=== PATIENT | female | born 1990 | race African-American/Black ===

== ENCOUNTER 2016-11-03 16:20 | Inpatient (IN) ==
[2016-11-03 17:31] LABS: Basophils % 0.2 % (0.0-0.8); Eosinophils % 0.5 % (0.00-10.9); Hematocrit 35.6 VOL% (35.7-47.0); Hemoglobin 10.9 GM/DL (12.0-16.0); Immature Granulocytes % 0.9 %; Immature Granulocytes Absolute 0.05 #; Lymphocytes # 1.6 10*3/uL (1.4-4.0); Mean Corpuscular HGB Conc 30.6 GM/DL (32-36); Mean Corpuscular Hemoglobin 24 PG (27-34); Mean Corpuscular Volume 78.2 FL (87-102); Mean Platelet Volume 11.5 FL (9.6-12.0); Monocytes # 0.4 10*3/uL (0.11-0.8); Monocytes % 7.1 % (1.7-12.7); Neutrophils # 3.5 10*3/uL (1.4-7.4); Neutrophils % 62.3 % (38.7-73.9); Platelet Count 184 T/CUMM (130-400); Red Blood Count 4.55 MC/CUMM (3.8-5.5); White Blood Count 5.7 T/CUMM (4-12)
[2016-11-03 17:36] LABS: Apearance,Urine CLOUDY (Clear); Bacteria,Urine Occasional /HPF (Few); Bilirubin,Urine Negative (Negative); Blood, Urine Negative (Negative); Glucose,Urine (UA) Negative (Negative); Ketones,Urine 20 mg/dL (Negative); Mucus,Urine Occasional /LPF (Occasional); Nitrite,Urine Negative (Negative); Protein,Urine Negative; RBC,Urine 1 /HPF (0-4); Squamous Epithelial Cell,Urine Occasional /HPF (0-10); WBC,Urine 4 /HPF (0-6)
[2016-11-03 17:37] LABS: Urine Color Yellow (Yellow)
[2016-11-03 18:01] LABS: Albumin 2.6 G/DL (3.4-5.0); Bilirubin,Total 0.5 MG/DL (0.2-1.0); Calcium 9.2 MG/DL (8.5-10.1); Osmolality,Calculated 268.8 MOS/KG (273-304); Total Protein 6.8 G/DL (6.4-8.3); Uric Acid 4.4 MG/DL (2.6-6.0)
[2016-11-03 18:43] LABS: INR 0.9; PT Patient Result 9.7 SECS; Partial Thromboplastin Time 29.1 SECS (0-40)
[2016-11-04] MEDS: LACTATED RINGERS 1,000 ML IV SCH ×3 (03:13→20:00)
[2016-11-04 05:55] LABS: Basophils % 0.2 % (0.0-0.8); Eosinophils % 0.5 % (0.00-10.9); Hematocrit 36.1 VOL% (35.7-47.0); Hemoglobin 10.8 GM/DL (12.0-16.0); Immature Granulocytes % 0.7 %; Immature Granulocytes Absolute 0.03 #; Lymphocytes # 1.5 10*3/uL (1.4-4.0); Lymphocytes % 37.2 % (21.3-54.2); Mean Corpuscular HGB Conc 29.9 GM/DL (32-36); Mean Corpuscular Hemoglobin 24 PG (27-34); Mean Corpuscular Volume 78.6 FL (87-102); Mean Platelet Volume 11.2 FL (9.6-12.0); Monocytes # 0.4 10*3/uL (0.11-0.8); Monocytes % 8.8 % (1.7-12.7); Neutrophils # 2.2 10*3/uL (1.4-7.4); Neutrophils % 52.6 % (38.7-73.9); Platelet Count 190 T/CUMM (130-400); Red Blood Count 4.59 MC/CUMM (3.8-5.5); Red Cell Distribution Width 15.1 % (9.3-17.3); White Blood Count 4.1 T/CUMM (4-12)
[2016-11-04 06:24] LABS: Albumin 2.4 G/DL (3.4-5.0); Bilirubin,Total 0.4 MG/DL (0.2-1.0); Calcium 8.5 MG/DL (8.5-10.1); Osmolality,Calculated 269.8 MOS/KG (273-304); Potassium 4.5 MMOL/L (3.5-5.1); Total Protein 6.5 G/DL (6.4-8.3)
[2016-11-04] MEDS ORDERED: CITRIC ACID/SODIUM CITRATE 30 ML UDCUP PO ONE (08:00)
[2016-11-04] MEDS ORDERED: FAMOTIDINE 20 MG/2 ML VIAL IV ONE (08:00)
[2016-11-04] MEDS ORDERED: OXYTOCIN/LR 20 UNIT/1,000 ML BAG IV ONE ×2 (08:23→10:57)
[2016-11-04] MEDS ORDERED: PHENYLEPHRINE 1 MG/10 ML SYRINGE IV ONE (09:35)
[2016-11-04] MEDS ORDERED: ONDANSETRON 4 MG/2 ML VIAL ONE (09:35)
[2016-11-04] MEDS ORDERED: PROPOFOL 200 MG/20 ML VIAL IV ONE (09:35)
[2016-11-04] MEDS ORDERED: ACETAMINOPHEN 325 MG TABLET PO PRN (10:57)
[2016-11-04] MEDS ORDERED: RHO(D) IMMUNE GLOBULIN 300 MCG SYRINGE IM ONE (10:57)
[2016-11-04] MEDS ORDERED: ONDANSETRON 4 MG/2 ML VIAL IV PRN (10:57)
[2016-11-04] MEDS ORDERED: LACTATED RINGERS 1,000 ML IV SCH (11:00)
--- NOTE | 2016-11-04 11:01 | Operative Note ---
Date of procedure: 11/04/16 Procedure Preformed: Following informed consent patient taken to the operating room where spinal anesthesia was administered without difficulty. She is prepped and draped in usual fashion placed in dorsal supine position with a leftward tilt. A Pfannenstiel skin incision made with scalpel and carried through to the underlying layer fascia with Bovie. The fascia with incision was excised midlines to lateral with Toussaint scissors. The inferior and superior aspects of the fascial incision were grasped with R[place] clamps, elevated and the rectus muscles dissected off bluntly. The rectus muscles were then midline and the peritoneum identified and entered with Metzenbaum scissors. The cyst extends purely inferiorly with good visualization of the bladder. Bladder blade was then reinserted and the uterus incised in transverse fashion with scalpel. It was head was atraumatically. The nose mouth bulb suctioned. Cord clamped cut and the handed off to waiting nurses. Cord blood was sent. The placenta was then removed manually and the uterus cleared all clots and debris. The uterine incision with #1 Vicryl in a running locked fashion. A second layer same suture was used to obtain hemostasis. The gutters and cleared of all clots and debris and once again hemostasis will be satisfactory. Therefore all instruments from the abdomen. The fascia was repaired with [0] Vicryl in a running fashion. Skin pleasant and soft rodger. At the end of the procedure all sponge lap needle counts correct 2. Baby and mother in stable condition. Surgeon / Physician: Guera Calderón Post-op diagnosis: same Findings: Liveborn male infant weight 8 lbs. 3 oz. Apgars 4 and 8 Specimens: none sent Estimated blood loss: other (500 mL) Condition: stable Anesthesia: spinal Disposition: floor
--- NOTE | 2016-11-04 11:02 | OB/GYN History & Physical ---
History of Present Illness History of present illness: Ms. Du is a 26 year old female Admitted at 38-6/7 weeks secondary to gestational hypertension. Patient with history of previous for which she is to undergo repeat section. Patient complained of headache 3 days Home Medications Medication Instructions Recorded Confirmed Type Multivitamin () [ 1 tablet PO DAILY 11/04/16 11/04/16 History Vitamin] HYDROcodone/ACETAMIN 5-325 [[place] 2 tablet PO Q6H PRN #60 tablet 11/06/16 Rx 5-325] Allergies Allergy/AdvReac Type Severity Reaction Status Date / Time Shellfish Allergy RASH Verified 10/06/16 07:45 12 point system: reviewed and no additional remarkable complaints except as stated Medical,Surgical,& Family Hx - Medical History Cardio: History of: Hypertension (PIH) Neurology: No history of: Seizures Gastrointestinal: History of: GI Problems (GALL STONES) Reproductive: History of: Complication (PIH this ) - Surgical History Abdominal Surgeries: Surgical HX of: Abdominal Surgery, Cholecystectomy Reproductive Surgeries: Surgical HX of;: Section (x3), Gynecologic Surgery Patient denies;: Hysterectomy, Tubal Ligation - Family History Family History: Denies;: Family Anesthesia Reaction, Family Cancer, Family Diabetes, Family Heart Disease, Family Hematology, Family Hypertension, Family Psychiatric Problems, Family Stroke, Additional Family History - Social History Smoking Status: Never smoker Frequency of Alcohol Use: None 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 - Constitutional Vitals: Vital Signs Temp Pulse Resp BP 11/04/16 04:00 97.9 F 82 18 137/65 11/04/16 00:00 97.8 F 94 H 18 134/70 11/03/16 21:00 117 H 18 156/51 11/03/16 20:30 96 H 18 157/70 11/03/16 20:00 91 H 18 138/69 11/03/16 19:30 99 H 18 145/50 11/03/16 19:00 98.0 F 107 H 18 145/48 11/03/16 18:30 98 H 18 135/62 11/03/16 18:00 104 H 18 139/70 11/03/16 17:30 69 18 141/87 11/03/16 17:23 100 H 18 145/80 11/03/16 16:53 111 H 18 128/65 General appearance: mild distress - Head Head exam: Present: normocephalic - Respiratory Respiratory exam: Present: clear to auscultation bilaterally - Cardiovascular Cardiovascular exam: Present: regular rate and rhythm - GI/Abdominal GI/Abdominal exam: Present: normal bowel sounds, soft - Extremities Exam Extremities exam: Present: edema (+1 edema of the lower extremities bilaterally) - Back Exam Back exam: Present: normal inspection - Neurological Exam Neurological exam: Present: alert, oriented X3 - Psychiatric Psychiatric exam: Present: normal affect, normal mood - Skin Skin exam: Present: normal color, warm Assessment and Plan (1) 38 weeks gestation of Status: Acute Current Visit: Yes (2) 38 to 41 weeks gestation of Status: Acute Current Visit: Yes (3) Gestational hypertension Status: Acute Current Visit: Yes Results - Labs CBC & BMP: 11/05/16 04:21 11/04/16 05:42 Quality Measures - VTE Contraindication to Pharmacological VTE Prophylaxis: High Risk of Bleeding
--- NOTE | 2016-11-04 11:10 | Anesthesia Post-Op ---
Anesthesia Post OP - Post Ansesthetic Evaluation Patient seen in post op: Yes Resp: within normal limits CV: within normal limits Mental: within normal limits Temp: within normal limits [id number]: within normal limits Nausea and Vomiting: within normal limits Pain: within normal limits
[2016-11-04] MEDS ORDERED: fentaNYL 100 MCG/2 ML VIAL ONE (11:15)
[2016-11-04] MEDS ORDERED: KETAMINE 500 MG/10 ML VIAL ONE (11:16)
[2016-11-04] MEDS ORDERED: MORPHINE 10 MG/10 ML VIAL ONE (11:16)
[2016-11-04] MEDS ORDERED: HYDROmorphone 2 MG/1 ML VIAL ONE (11:45)
[2016-11-04] MEDS: HYDROmorphone 2 MG/1 ML VIAL IV PRN ×2 (18:10→22:20)
[2016-11-04 18:24] LABS: Basophils % 0.1 % (0.0-0.8); Hemoglobin 10.1 GM/DL (12.0-16.0); Immature Granulocytes % 0.4 %; Immature Granulocytes Absolute 0.04 #; Lymphocytes # 1.3 10*3/uL (1.4-4.0); Lymphocytes % 14.1 % (21.3-54.2); Mean Corpuscular HGB Conc 30.6 GM/DL (32-36); Mean Corpuscular Hemoglobin 24 PG (27-34); Mean Corpuscular Volume 78.4 FL (87-102); Mean Platelet Volume 11.5 FL (9.6-12.0); Monocytes # 0.4 10*3/uL (0.11-0.8); Neutrophils # 7.8 10*3/uL (1.4-7.4); Neutrophils % 81.4 % (38.7-73.9); Platelet Count 170 T/CUMM (130-400); Red Blood Count 4.21 MC/CUMM (3.8-5.5); Red Cell Distribution Width 14.8 % (9.3-17.3); White Blood Count 9.5 T/CUMM (4-12)
[2016-11-04] MEDS: DOCUSATE SODIUM 100 MG CAPSULE PO SCH (22:35)
[2016-11-05] MEDS: IBUPROFEN 800 MG TABLET PO PRN ×2 (03:00→13:01)
[2016-11-05 04:31] LABS: Basophils % 0.1 % (0.0-0.8); Eosinophils % 0.2 % (0.00-10.9); Hematocrit 29.5 VOL% (35.7-47.0); Hemoglobin 9.2 GM/DL (12.0-16.0); Immature Granulocytes % 0.6 %; Immature Granulocytes Absolute 0.05 #; Lymphocytes # 0.8 10*3/uL (1.4-4.0); Lymphocytes % 9.1 % (21.3-54.2); Mean Corpuscular HGB Conc 31.2 GM/DL (32-36); Mean Corpuscular Hemoglobin 24 PG (27-34); Mean Corpuscular Volume 77.6 FL (87-102); Mean Platelet Volume 10.6 FL (9.6-12.0); Monocytes # 0.7 10*3/uL (0.11-0.8); Monocytes % 7.9 % (1.7-12.7); Neutrophils # 6.8 10*3/uL (1.4-7.4); Neutrophils % 82.1 % (38.7-73.9); Platelet Count 142 T/CUMM (130-400); White Blood Count 8.2 T/CUMM (4-12)
[2016-11-05] MEDS: LACTATED RINGERS 1,000 ML IV SCH (06:00)
[2016-11-05] MEDS: MULTIVITAMIN (PRENATAL) TABLET PO SCH (08:31)
[2016-11-05] MEDS: DOCUSATE SODIUM 100 MG CAPSULE PO SCH ×2 (08:31→20:21)
--- NOTE | 2016-11-05 12:26 | OB/GYN Progress Note ---
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 - Constitutional Vitals: Vital Signs Temp Pulse Resp BP Pulse Ox 11/05/16 11:09 99.2 F 100 H 20 119/68 96 11/05/16 07:27 98.3 F 87 20 121/76 95 11/05/16 04:00 98.9 F 99 H 18 126/64 96 11/05/16 02:00 18 11/05/16 00:00 97.8 F 99 H 18 121/66 95 11/04/16 20:00 98.6 F 77 18 146/78 99 11/04/16 16:30 75 20 127/70 99 11/04/16 15:30 98.3 F 79 20 138/75 99 11/04/16 14:30 73 20 138/77 100 11/04/16 14:00 75 20 153/81 100 11/04/16 13:30 98 F 69 20 136/80 100 General appearance: no acute distress - Gyencological / Post Surgical Post Surgical Exam Extremities TEXTILE BAG SEWER: Present: normal Abdomen obstetrics progress note: Present: normal appearance, soft Incision OB: Present: normal, dry, intact - Head Head exam: Present: normocephalic - ENT ENT exam: Present: normal exam - Neck Neck exam: Present: normal inspection - Respiratory Respiratory exam: Present: clear to auscultation bilaterally - Cardiovascular Cardiovascular exam: Present: regular rate and rhythm - GI/Abdominal GI/Abdominal exam: Present: normal bowel sounds, soft - Extremities Exam Extremities exam: Present: normal inspection - Back Exam Back exam: Present: normal inspection - Neurological Exam Neurological exam: Present: alert - Psychiatric Psychiatric exam: Present: normal affect, normal mood - Skin Skin exam: Present: normal color, warm Results - Labs CBC & BMP: 11/05/16 04:21 11/04/16 05:42
--- NOTE | 2016-11-05 12:27 | Discharge Summary ---
Hospital Course - Hospital Course Hospital Course: This is a 26-year-old multiparous female admitted at 38-6/7 weeks secondary to gestational hypertension. Patient with a history of previous for which she underwent a repeat section. Hospital course unremarkable by postop day #3 she was ready for discharge Diagnosis - Discharge Diagnosis (1) 38 weeks gestation of Status: Acute (2) 38 to 41 weeks gestation of Status: Acute (3) Gestational hypertension Status: Acute (4) Delivered by section Status: Acute Specialty Discharge - Follow Up or Referrals Follow up with: Guera Calderón MD [Physician] - 1 Week Discharge Plan - Discharge Data Disposition: Disch To Home/Self Care Condition at Discharge: Stable Discharge Diet: advance to your usual diet Activity: no lifting Hygiene: may shower Weight Bearing at Discharge: weight bear as tolerated Driving: not until seen by doctor Contact your physician if you experience:: fever over 101, Difficulty voiding, Redness or swelling, Nausea/Vomiting, Shortness of breath, Bleeding, pain uncontrolled by pain medications - Discharge Medications No Action Multivitamin () [ Vitamin] 1 tablet PO DAILY Levofloxacin Tab [Levaquin Tab] 750 mg PO DAILY #10 tablet predniSONE TAB [PredniSONE] 20 mg PO DAILY #15 tablet - Follow Up or Referral Follow Up: Guera Calderón MD [Physician] - 1 Week - Forms/Instructions Instructions: Section (DC), Depression (GEN), Surgical Site Infections (GEN), Wound Healing and Your Diet (DC), Bleeding (DC ) Exam - Constitutional Vitals: Period Temp Pulse Resp BP Sys/Naylor Pulse Ox Last 24 Hr 97.8 F-99.2 F 69-100 18-20 119-153/64-81 95-100 General appearance: no acute distress - Head Head exam: Present: normocephalic - ENT ENT exam: Present: normal exam - Neck Neck exam: Present: normal inspection - Respiratory Respiratory exam: Present: clear to auscultation bilaterally - Cardiovascular Cardiovascular exam: Present: regular rate and rhythm - GI/Abdominal GI/Abdominal exam: Present: normal bowel sounds, soft - Extremities Exam Extremities exam: Present: normal inspection - Back Exam Back exam: Present: normal inspection - Neurological Exam Neurological exam: Present: alert, oriented X3 - Psychiatric Psychiatric exam: Present: normal affect, normal mood - Skin Skin exam: Present: normal color, warm Discharge Results Labs on day of discharge: Labs from last 24 hours 11/05/16 11/04/16 04:21 18:01 WBC 8.2 9.5 D RBC 3.80 4.21 Hgb 9.2 L 10.1 L Hct 29.5 L 33.0 L MCV 77.6 L 78.4 L MCH 24 L 24 L MCHC 31.2 L 30.6 L RDW 15.0 14.8 Plt Count 142 170 MPV 10.6 11.5 Neut % (Auto) 82.1 H 81.4 H Lymph % (Auto) 9.1 L 14.1 L [place] % (Auto) 7.9 4.0 Eos % (Auto) 0.2 0.0 Baso % (Auto) 0.1 0.1 Neut # (Auto) 6.8 7.8 H Lymph # (Auto) 0.8 L 1.3 L [place] # (Auto) 0.7 0.4 Eos # (Auto) 0.0 0.0 Baso # (Auto) 0.0 0.0 Immature Gran % 0.6 0.4 Nucleated RBC % 0.0 0.0 Immature Gran # 0.05 0.04 Nucleated RBCs # 0.00 0.00 DS: Provider Date of admission: 11/04/16 01:12 Primary care physician: . No PCP Attending physician on admission: Guera Calderón MD Consults: 11/04/16 01:13 Consult to Anesthesiology [CONS] Routine Consulting Provider: Reason for Anesthesiology: Pre-op Clearance 11/04/16 10:59 Consult to Percussion Instrument Repairer [CONS] Routine Consult Percussion Instrument Repairer: Breast Feeding Discharging clinician: Guera Calderón MD
[2016-11-05] MEDS: MAGNESIUM HYDROXIDE SUSP 30 ML UDCUP PO PRN (16:30)
[2016-11-05] MEDS: SIMETHICONE CHEW 80 MG TABLET PO PRN (16:30)
[2016-11-06] MEDS: IBUPROFEN 800 MG TABLET PO PRN ×2 (08:00→17:15)
[2016-11-06] MEDS: MULTIVITAMIN (PRENATAL) TABLET PO SCH (09:30)
[2016-11-06] MEDS: DOCUSATE SODIUM 100 MG CAPSULE PO SCH ×2 (09:30→21:58)
[2016-11-06] MEDS: MAGNESIUM HYDROXIDE SUSP 30 ML UDCUP PO PRN ×2 (09:30→21:58)
[2016-11-06] MEDS: SIMETHICONE CHEW 80 MG TABLET PO PRN (10:00)
--- NOTE | 2016-11-06 12:52 | OB/GYN Progress Note ---
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 Interval history: No complaints Exam BODY ARTIST - Constitutional Vitals: Vital Signs Temp Pulse Resp BP Pulse Ox 11/06/16 12:00 97.4 F L 104 H 20 137/71 100 11/06/16 10:00 20 11/06/16 08:00 99.0 F 112 H 20 138/82 99 11/06/16 06:00 18 11/06/16 04:00 98.9 F 112 H 18 120/56 95 11/06/16 02:00 18 11/06/16 00:00 96.3 F L 101 H 18 109/56 96 11/05/16 22:00 18 11/05/16 20:00 97.6 F 104 H 18 138/71 98 11/05/16 16:00 100 F H 114 H 20 124/71 98 General appearance: no acute distress - Gyencological / Post Surgical Post Surgical Exam Extremities BODY ARTIST: Present: normal Abdomen obstetrics progress note: Present: normal appearance, soft Incision OB: Present: normal, dry, intact - Neck Neck exam: Present: normal inspection - Respiratory Respiratory exam: Present: clear to auscultation bilaterally - Cardiovascular Cardiovascular exam: Present: regular rate and rhythm - GI/Abdominal GI/Abdominal exam: Present: normal bowel sounds, soft - Extremities Exam Extremities exam: Present: normal inspection - Back Exam Back exam: Present: normal inspection - Neurological Exam Neurological exam: Present: alert, oriented X3 - Psychiatric Psychiatric exam: Present: normal affect, normal mood - Skin Skin exam: Present: normal color, warm Results - Labs CBC & BMP: 11/05/16 04:21 11/04/16 05:42
[2016-11-07 08:33] VITALS: BP 132/79
[2016-11-07] MEDS ORDERED: DIPH/TET/ACEL PERT BOOSTER VACCINE 0.5 ML VIAL IM ONE (08:34)
[2016-11-07] MEDS: DOCUSATE SODIUM 100 MG CAPSULE PO SCH (08:40)
[2016-11-07] MEDS: SIMETHICONE CHEW 80 MG TABLET PO PRN (08:40)
[2016-11-07] MEDS: MAGNESIUM HYDROXIDE SUSP 30 ML UDCUP PO PRN (08:41)
--- NOTE | 2016-11-07 10:30 | OB/GYN Progress Note ---
SHINGLER - PN: Subj Interval history: This is on-call note Patient is doing well today she is alert and oriented 3. She is resting comfortably in the bed and tolerating her diet. She reported that her potassium was 3.7. Patient is having this and her other medical problems managed by hospital medicine. Patient's incision is dry and intact she has good bowel sounds Assessment #1 patient doing better clinically Plan continue present management Exam SHINGLER - Constitutional Vitals: Vital Signs Temp Pulse Pulse Pulse Resp BP BP 11/07/16 09:46 20 11/07/16 08:00 97.9 F 82 20 132/79 11/07/16 04:00 97.2 F L 24 L 24 135/73 11/07/16 00:00 97.1 F L 93 H 24 140/76 11/06/16 19:20 98.3 F 100 H 24 138/68 11/06/16 17:44 20 11/06/16 15:43 98.3 F 103 H 18 128/68 11/06/16 15:42 18 11/06/16 14:00 20 11/06/16 12:00 97.4 F L 104 H 20 137/71 Pulse Ox 11/07/16 09:46 11/07/16 08:00 99 11/07/16 04:00 95 11/07/16 00:00 95 11/06/16 19:20 95 11/06/16 17:44 11/06/16 15:43 99 11/06/16 15:42 11/06/16 14:00 11/06/16 12:00 100 Results - Labs CBC & BMP: 11/05/16 04:21 11/04/16 05:42
== END 2016-11-07 13:15 | disposition home or self-care (01) | DRG 540 ==
LOC: N.LD → OBSVTOIN 16:20 → N.OB 11-04 13:15
PROVIDERS: ADMIT Obstetrics & Gynecology; ATTEND Obstetrics & Gynecology
PROC: LDCSECT (ICD-10-PCS; 2016-11-04 07:00)

== ENCOUNTER 2018-06-23 06:08 | Inpatient (IN) ==
[2018-06-23] MEDS ORDERED: ONDANSETRON 4 MG/2 ML VIAL IV PRN ×2 (06:20→09:29)
[2018-06-23] MEDS ORDERED: PROMETHAZINE 25 MG/1 ML VIAL IM ONE (06:21)
[2018-06-23] MEDS ORDERED: diphenhydrAMINE 50 MG/1 ML VIAL IV PRN (06:21)
[2018-06-23] MEDS ORDERED: ePHEDrine 50 MG/ML AMP IV PRN (06:21)
[2018-06-23] MEDS ORDERED: LACTATED RINGERS 1,000 ML IV ONE (06:21)
[2018-06-23] MEDS ORDERED: CITRIC ACID/SODIUM CITRATE 30 ML UDCUP PO ONE (06:21)
[2018-06-23] MEDS ORDERED: FAMOTIDINE 20 MG/2 ML VIAL IV ONE (06:21)
[2018-06-23] MEDS ORDERED: hydrOXYzine HCL 25 MG/1 ML VIAL IM PRN (06:21)
[2018-06-23] MEDS ORDERED: NALOXONE 0.4 MG/ML VIAL IV PRN (06:21)
[2018-06-23] MEDS ORDERED: fentaNYL 2 MCG/ROPIV 0.2% EPID 100 ML EPIDURAL SCH (06:30)
[2018-06-23] MEDS ORDERED: LACTATED RINGERS 1,000 ML IV SCH (06:30)
[2018-06-23 06:49] LABS: Basophils % 0.3 % (0.0-0.8); Eosinophils % 0.5 % (0.00-10.9); Hematocrit 38.3 VOL% (35.7-47.0); Hemoglobin 11.6 GM/DL (12.0-16.0); Immature Granulocytes % 0.7 %; Immature Granulocytes Absolute 0.04 #; Lymphocytes # 1.4 10*3/uL (1.4-4.0); Lymphocytes % 24.1 % (21.3-54.2); Mean Corpuscular HGB Conc 30.3 GM/DL (32-36); Mean Corpuscular Hemoglobin 26 PG (27-34); Mean Corpuscular Volume 84.2 FL (87-102); Mean Platelet Volume 11.2 FL (9.6-12.0); Monocytes # 0.4 10*3/uL (0.11-0.8); Monocytes % 6.1 % (1.7-12.7); Neutrophils # 3.9 10*3/uL (1.4-7.4); Neutrophils % 68.3 % (38.7-73.9); Platelet Count 203 T/CUMM (130-400); Red Blood Count 4.55 MC/CUMM (3.8-5.5); Red Cell Distribution Width 14.6 % (9.3-17.3); White Blood Count 5.8 T/CUMM (4-12)
[2018-06-23] MEDS ORDERED: ceFAZolin 3,000 MG in SYRINGE 1 EACH IV ONE (07:00)
[2018-06-23 07:06] LABS: Albumin 2.6 G/DL (3.4-5.0); Bilirubin,Total 0.5 MG/DL (0.2-1.0); Calcium 8.6 MG/DL (8.5-10.1); Osmolality,Calculated 265.2 MOS/KG (273-304); Total Protein 7.7 G/DL (6.4-8.3)
[2018-06-23] MEDS ORDERED: SODIUM CHLORIDE 0.9% 100 ML IV ONE (07:11)
[2018-06-23] MEDS ORDERED: OXYTOCIN/LR 20 UNIT/1,000 ML BAG IV ONE ×2 (07:52→09:29)
[2018-06-23] MEDS ORDERED: PHENYLEPHRINE 1 MG/10 ML SYRINGE IV ONE ×2 (08:13→09:39)
[2018-06-23] MEDS ORDERED: OXYTOCIN 10 UNIT/ML VIAL ONE (08:14)
[2018-06-23] MEDS ORDERED: BUPIVACAINE SPINAL 0.75% 2 ML AMP SPINAL ONE (08:14)
[2018-06-23] MEDS ORDERED: fentaNYL 100 MCG/2 ML VIAL ONE (08:14)
[2018-06-23] MEDS ORDERED: MORPHINE 10 MG/10 ML VIAL ONE (08:14)
[2018-06-23] MEDS ORDERED: KETOROLAC 60 MG/2 ML VIAL IM ONE (08:14)
[2018-06-23 08:47] LABS: Apearance,Urine CLEAR (Clear); Bacteria,Urine Occasional /HPF (Few); Bilirubin,Urine Negative (Negative); Blood, Urine Negative (Negative); Glucose,Urine (UA) Negative (Negative); Ketones,Urine 20 mg/dL (Negative); Mucus,Urine Occasional /LPF (Occasional); Nitrite,Urine Negative (Negative); Protein,Urine Negative; RBC,Urine 1 /HPF (0-4); Squamous Epithelial Cell,Urine Occasional /HPF (0-10); Urine Color Yellow (Yellow); Urine Specific Gravity 1.019 (1.001-1.035); Urine Urobilinogen < 2.0 EU/DL (0.2-1.0)
[2018-06-23] MEDS ORDERED: RHO(D) IMMUNE GLOBULIN 300 MCG SYRINGE IM ONE (09:29)
[2018-06-23] MEDS ORDERED: IBUPROFEN 800 MG TABLET PO PRN (09:29)
[2018-06-23] MEDS ORDERED: ACETAMINOPHEN 325 MG TABLET PO PRN (09:29)
[2018-06-23] MEDS ORDERED: HYDROmorphone 2 MG/1 ML VIAL IV PRN (09:36)
[2018-06-23] MEDS: LACTATED RINGERS 1,000 ML IV SCH (14:55)
[2018-06-23] MEDS ORDERED: KETOROLAC 30 MG/1 ML VIAL IV SCH (15:30)
[2018-06-23] MEDS: ceFAZolin 1,000 MG in SYRINGE 1 EACH IV SCH ×2 (17:29→17:43)
[2018-06-24] MEDS: SIMETHICONE CHEW 80 MG TABLET PO PRN ×2 (00:14→07:35)
[2018-06-24] MEDS: LACTATED RINGERS 1,000 ML IV SCH (00:14)
[2018-06-24] MEDS: ceFAZolin 1,000 MG in SYRINGE 1 EACH IV SCH (01:27)
[2018-06-24 05:22] LABS: Basophils % 0.1 % (0.0-0.8); Eosinophils # 0.1 10*3/uL (0.0-0.87); Eosinophils % 1.2 % (0.00-10.9); Hematocrit 30.4 VOL% (35.7-47.0); Immature Granulocytes % 0.6 %; Immature Granulocytes Absolute 0.05 #; Lymphocytes # 0.9 10*3/uL (1.4-4.0); Lymphocytes % 11.6 % (21.3-54.2); Mean Corpuscular HGB Conc 30.9 GM/DL (32-36); Mean Corpuscular Hemoglobin 27 PG (27-34); Mean Corpuscular Volume 87.1 FL (87-102); Mean Platelet Volume 11.2 FL (9.6-12.0); Monocytes # 0.6 10*3/uL (0.11-0.8); Monocytes % 7.3 % (1.7-12.7); Neutrophils # 6.1 10*3/uL (1.4-7.4); Neutrophils % 79.2 % (38.7-73.9); Red Cell Distribution Width 14.5 % (9.3-17.3)
[2018-06-24 05:37] LABS: Hemoglobin 9.4 GM/DL (12.0-16.0); Platelet Count 162 T/CUMM (130-400); Red Blood Count 3.49 MC/CUMM (3.8-5.5); White Blood Count 7.8 T/CUMM (4-12)
[2018-06-24] MEDS: MAGNESIUM HYDROXIDE SUSP 30 ML UDCUP PO PRN (07:35)
[2018-06-24] MEDS: DOCUSATE SODIUM 100 MG CAPSULE PO SCH ×2 (09:51→20:54)
[2018-06-24] MEDS: MULTIVITAMIN (PRENATAL) TABLET PO SCH (09:51)
[2018-06-24] MEDS ORDERED: RHO(D) IMMUNE GLOBULIN 300 MCG SYRINGE IM ONE (11:00)
[2018-06-25 07:50] VITALS: BP 124/63
[2018-06-25] MEDS: MULTIVITAMIN (PRENATAL) TABLET PO SCH (08:44)
[2018-06-25] MEDS: DOCUSATE SODIUM 100 MG CAPSULE PO SCH ×2 (08:44→08:51)
[2018-06-25] MEDS: MAGNESIUM HYDROXIDE SUSP 30 ML UDCUP PO PRN (08:44)
== END 2018-06-25 19:45 | disposition home or self-care (01) | DRG 540 ==
LOC: N.LDOUT 06:08 → N.LD 06:15 → N.OB 13:35
PROVIDERS: ADMIT Obstetrics & Gynecology; ATTEND Obstetrics & Gynecology
PROC: LDCSECT (ICD-10-PCS; 2018-06-23 07:30)